=== PATIENT | male | born 1995 | race Hispanic/Latino ===

== ENCOUNTER 2017-12-05 20:47 | Emergency (ER) | payer SELFPAY | END 2017-12-05 21:10 | disposition home or self-care (01) | LOC: EDH 20:47 | DX: R19.7 Diarrhea, unspecified (principal); R11.0 Nausea; Z72.0 Tobacco use ==

== ENCOUNTER 2017-12-18 11:11 | Emergency (ER) | payer SELFPAY | END 2017-12-18 12:04 | disposition left against medical advice (07) | LOC: EDH 11:11 | DX: Z53.21 Procedure and treatment not carried out due to patient leaving prior to being seen by health care provider (principal) ==

== ENCOUNTER 2017-12-21 00:45 | Emergency (ER) | payer SELFPAY | END 2017-12-21 01:28 | disposition home or self-care (01) | LOC: EDH 00:45 | DX: S90.122A Contusion of left lesser toe(s) without damage to nail, initial encounter (principal); Z72.0 Tobacco use; W22.8XXA Striking against or struck by other objects, initial encounter; Y93.89 Activity, other specified; Y92.89 Other specified places as the place of occurrence of the external cause; Y99.8 Other external cause status | CPT/HCPCS: 99281 ==

== ENCOUNTER 2022-02-12 18:07 | Emergency (ER) | payer OTHER ==
[~2022-02-12] VITALS: Ht 162.6 cm; Wt 4.5 kg
[2022-02-12] MEDS ORDERED: KETOROLAC 60 MG VIAL (30MG/ML) IM ONE (19:30)
[2022-02-12] MEDS ORDERED: ORPHENADRINE CITRATE 30 MG/ML ML IM ONE (19:30)
[2022-02-12] MEDS ORDERED: CYCL-309 PO (19:40)
[2022-02-12] MEDS ORDERED: IBUP-2077 PO (19:40)
[2022-02-12 21:07] VITALS: BP 141/85
== END 2022-02-12 21:08 | disposition home or self-care (01) ==
LOC: EDH 18:07
DX: S39.012A Strain of muscle, fascia and tendon of lower back, initial encounter (principal); S80.212A Abrasion, left knee, initial encounter; S80.211A Abrasion, right knee, initial encounter; R03.0 Elevated blood-pressure reading, without diagnosis of hypertension; V49.49XA Driver injured in collision with other motor vehicles in traffic accident, initial encounter; Y93.89 Activity, other specified; Y92.89 Other specified places as the place of occurrence of the external cause; Y99.8 Other external cause status
CPT/HCPCS: 71046; 96372 ×2; 99284; J1885; J2360

== ENCOUNTER 2022-02-28 22:23 | Emergency (ER) | payer OTHER ==
[~2022-02-28] VITALS: Ht 165.1 cm; Wt 114.3 kg
[~2022-02-28 22:23] MED LIST: CYCL-309 PO; IBUP-2077 PO
[2022-02-28 22:27] VITALS: BP 148/77
[2022-02-28] MEDS: KETOROLAC 60 MG VIAL (30MG/ML) IM ONE ×2 (22:55→22:57)
[2022-02-28] MEDS ORDERED: IBUP-2071 PO (22:56)
[2022-02-28] MEDS ORDERED: IBUPROFEN 600 MG TABLET PO ONE (23:00)
== END 2022-02-28 23:24 | disposition home or self-care (01) ==
LOC: EDH 22:23
DX: S93.401A Sprain of unspecified ligament of right ankle, initial encounter (principal); R03.0 Elevated blood-pressure reading, without diagnosis of hypertension; E66.9 Obesity, unspecified; Z79.1 Long term (current) use of non-steroidal anti-inflammatories (NSAID); Z68.41 Body mass index [BMI] 40.0-44.9, adult; X58.XXXA Exposure to other specified factors, initial encounter; Y93.89 Activity, other specified; Y92.89 Other specified places as the place of occurrence of the external cause; Y99.8 Other external cause status
CPT/HCPCS: 29515; 73610; 99283; J1885